=== PATIENT | female | born 1965 | race Two or more races ===

== ENCOUNTER 2018-03-19 16:43 | Emergency (ER) | payer OTHER ==
[2018-03-19 16:54] VITALS: BP 132/73; PULSE 99; TEMP 98.2; BMI 26.6
--- NOTE | 2018-03-19 17:55 | PDOC ---
History of Present Illness - General Chief Complaint: Cold Symptoms Stated Complaint: HEADACHE Time Seen by Provider: 03/19/18 17:32 History Source: Patient Exam Limitations: No Limitations - History of Present Illness Initial Comments: 03/19/18 17:48 HISTORY OF PRESENT ILLNESS: 52-year-old woman past medical history frequent sinusitis of presents emergency department for evaluation of left-sided facial pain which is been worsening over the past 10 days. Patient reports most recently had a sinus infection prior to and was treated with fluoroquinolone antibiotics. She stated the infection improved but did not go away after completion of antibiotics and then spontaneously resolved a week later. Patient reports increased pain which radiates to her teeth on the left side as well as mucopurulent drainage from her left naris. The Patient reports pain is 8/10 and worsens while she sits forward. She denies fevers. No recent travel or sick contacts. PAST MEDICAL HISTORY: frequent sinusitis SURGICAL HISTORY: Denies ALLERGIES: No known drug allergies REVIEW OF SYSTEMS General/Constitutional: Denies fever or chills. Denies weakness, weight change. HEENT: Denies change in vision. Denies ear pain or discharge. Denies sore throat. Left sided facial pain. Cardiovascular: Denies chest pain or shortness of breath. Respiratory: Denies cough, wheezing, or hemoptysis. Gastrointestinal: Denies nausea, vomiting, diarrhea or constipation. Denies rectal bleeding. Genitourinary: Denies dysuria, frequency, or change in urination. Musculoskeletal: Denies joint or muscle swelling or pain. Denies neck or back pain. Skin and breasts: Denies rash or easy bruising. Neurologic: Denies headache, vertigo, loss of consciousness, or loss of sensation. Psychiatric: Denies depression or anxiety. Endocrine: Denies increased thirst. Denies abnormal weight change. Hematologic/Lymphatic: Denies anemia, easy bleeding, or history of blood clots. Allergic/Immunologic: Denies hives or skin allergy. Denies latex allergy. PHYSICAL EXAM General Appearance: Well-appearing, appropriately dressed. No apparent distress , no intoxication. HEENT: EOMI, PERRLA, normal ENT inspection, normal voice, TMs normal, pharynx normal. No conjunctival pallor. No photophobia, scleral icterus. +maxillary and frontal sinus tenderness. No Periorbital erythema, tenderness or induration. Respiratory/Chest: Lungs CTAB. No shortness of breath, chest tenderness, respiratory distress, accessory muscle use. No crackles, rales, rhonchi, stridor , wheezing, dullness Cardiovascular: RRR. S1, S2. No JVD, murmur, bradycardia, tachycardia. 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 Fully oriented, alert. Appropriate mood/affect. Motor strength 5/5. No appreciable EOM palsy, facial droop or sensory deficit. Past History - Past Medical History Allergies/Adverse Reactions: Allergies Allergy/AdvReac Type Severity Reaction Status Date / Time No Known Allergies Allergy Verified 03/19/18 16:49 Home Medications: Ambulatory Orders Doxycycline Hyclate 100 mg PO BID #20 tablet 03/19/18 Tramadol HCl 50 mg PO TID PRN #9 tablet MDD 3 03/19/18 COPD: No - Immunization History Immunization Up to Date: No - Suicide/Smoking/Psychosocial Hx Smoking History: Current every day smoker Number of Cigarettes Smoked Daily: 10 Information on smoking cessation initiated: No Hx Alcohol Use: No Drug/Substance Use Hx: No *Physical Exam - Vital Signs Last Vital Signs Temp Pulse Resp BP Pulse Ox 98.2 F 99 H 18 132/73 100 03/19/18 16:51 03/19/18 16:51 03/19/18 16:51 03/19/18 16:51 03/19/18 16:51 Moderate Sedation - Procedure Monitoring Vital Signs: Procedure Monitoring Vital Signs Temperature 98.2 F 03/19/18 16:51 Pulse Rate 99 H 03/19/18 16:51 Respiratory Rate 18 03/19/18 16:51 Blood Pressure 132/73 03/19/18 16:51 O2 Sat by Pulse Oximetry (%) 100 03/19/18 16:51 Medical Decision Making - Medical Decision Making 03/19/18 17:48 A/P: 52-year-old woman with left-sided facial pain for the past 10 days Maxillary and frontal sinus tenderness to light palpation Transillumination of the sinuses positive Mucopurulent nasal discharge noted No tenderness to palpation of the orbits No erythema or swelling to orbits TMs within normal limits bilaterally Oropharynx clear without erythema or exudates Physical exam is consistent with sinusitis. As symptoms have been present for greater than 1 week, the patient with increased pain I will treat the patient with doxycycline 100 mg twice a day as an outpatient. I will also prescribed tramadol 50 mg every 8 hours for 2 days to help with her pain until the antibiotics begin to work. I discussed the physical exam findings, ancillary test results and final diagnoses with the patient. I answered all of the patient's questions. The patient was satisfied with the care received and felt comfortable with the discharge plan and treatment plan. The patient will call their primary care physician within 24 hours to arrange follow-up and will return to the Emergency Department with any new, persistent or worsening symptoms. *DC/Admit/Observation/Transfer Diagnosis at time of Disposition: Sinusitis Qualifiers: Sinusitis location: unspecified location Chronicity: acute Recurrence: recurrent Qualified Code(s): J01.91 - Acute recurrent sinusitis, unspecified - Discharge Dispostion Disposition: HOME Condition at time of disposition: Stable Decision to Admit order: No - Prescriptions Prescriptions: Doxycycline Hyclate 100 mg PO BID #20 tablet Tramadol HCl 50 mg PO TID PRN #9 tablet MDD 3 PRN Reason: Moderate Pain - Referrals Referrals: ON STAFF,NOT [Primary Care Provider] - - Patient Instructions Printed Discharge Instructions: DI for Sinusitis Additional Instructions: Rest, drink lots of fluids: Teas, water, soups, Pedialyte Saltwater gargles Steamy showers/seem to face break up mucus Avoid contact with others until fevers and cough resolved Lots of handwashing and good hygiene Continue [id number] medications for symptomatic relief Tylenol or Motrin for fever and pain Tramadol 50mg 3 times a day for severe pain Doxycycline 100mg twice a day until all medications are completed. Followup with private physician in one to 2 days as needed Return to emergency department for worsened symptoms, fevers, dehydration - Post Discharge Activity
== END 2018-03-19 18:07 | disposition home or self-care (01) ==
LOC: JERFT 16:43
DX: J01.91 Acute recurrent sinusitis, unspecified (principal)
CPT/HCPCS: 99281-25

== ENCOUNTER 2020-08-08 09:08 | Emergency (ER) | payer OTHER ==
[2020-08-08 09:14] VITALS: BP 134/74; PULSE 79; TEMP 98.3; BMI 26.3
[2020-08-08 10:41] LABS: BASO % 0.8 % (0-2.0); EOS % 1.8 % (0-4.5); HEMATOCRIT 39.7 % (32.4-45.2); HEMOGLOBIN 13.4 GM/dL (10.7-15.3); LYMPH % 26.3 % (8-40); MCHC 33.9 g/dl (32.0-36.0); MEAN CELL VOLUME 88.5 fl (80-96); MEAN PLT VOLUME 9.2 fl (7.5-11.1); MONO % 7.7 % (3.8-10.2); NEUT % 63.4 % (42.8-82.8); PLATELET COUNT 306 K/MM3 (134-434); RBC 4.49 M/mm3 (3.60-5.2); RDW 14.3 % (11.6-15.6); WHITE BLOOD COUNT 11.4 K/mm3 (4.0-10.0)
[2020-08-08 10:51] LABS: HCG,QUALITATIVE URINE Negative
[2020-08-08 10:59] LABS: EPI CELLS >36 /uL (0-25.1); HYALINE CASTS 12 /uL (0-3.1); PH,URINE 5.5 (5.0-8.0); URINE APPEARANCE CLEAR; URINE BACTERIA 799 /uL (0-1359); URINE BILIRUBIN NEGATIVE (NEGATIVE); URINE COLOR YELLOW; URINE GLUCOSE (UA) NEGATIVE (NEGATIVE); URINE KETONE NEGATIVE (NEGATIVE); URINE LEUK ESTERASE NEGATIVE (NEGATIVE); URINE NITRITE NEGATIVE (NEGATIVE); URINE PROTEIN 1+ (NEGATIVE); URINE RBC 4 /uL (0-23.9); URINE UROBILINOGEN 0.2 mg/dL (0.2-1.0); URINE WBC 2 /uL (0-25.8)
[2020-08-08 11:02] LABS: CALCIUM 8.8 mg/dL (8.5-10.1)
[2020-08-08 11:03] LABS: BLOOD UREA NITROGEN 10.3 mg/dL (7-18)
[2020-08-08 11:06] LABS: CREATININE 0.7 mg/dL (0.55-1.3)
== END 2020-08-08 14:52 | disposition home or self-care (01) ==
LOC: JER 09:08
DX: D25.9 Leiomyoma of uterus, unspecified (principal); M79.671 Pain in right foot
CPT/HCPCS: 36415; 73610-TC-RT-FY; 73630-TC-RT-FY; 76830-TC; 80048; 81003; 84703; 85025; 87086; 87491; 87591; 99285-25

== ENCOUNTER 2020-09-29 12:16 | Emergency (ER) | payer OTHER ==
[2020-09-29 12:25] VITALS: BP 133/74; PULSE 80; TEMP 98.7; BMI 30.5
[2020-09-29] MEDS ORDERED: KETOROLAC TROMETHAMINE 60 MG/2 ML VIAL IVPUSH ONE (13:22)
[2020-09-29] MEDS ORDERED: METOCLOPRAMIDE HCL INJECTION 10 MG/2 ML VIAL IVPB ONE (13:22)
[2020-09-29] MEDS ORDERED: SODIUM CHLORIDE 1,000 ML IV STA (13:22)
[2020-09-29] MEDS ORDERED: diphenhydrAMINE HCL 25 MG CAPSULE (FP) PO ONE (13:59)
[2020-09-29] MEDS ORDERED: METOCLOPRAMIDE HCL INJECTION 10 MG/2 ML VIAL ONE (13:59)
[2020-09-29] MEDS ORDERED: KETOROLAC TROMETHAMINE 15 MG/ML VIAL ONE (13:59)
[2020-09-29 14:34] LABS: BASO % 0.4 % (0-2.0); EOS % 1.4 % (0-4.5); HEMATOCRIT 42.9 % (32.4-45.2); HEMOGLOBIN 14.1 GM/dL (10.7-15.3); LYMPH % 31.9 % (8-40); MCH 29.2 pg (25.7-33.7); MCHC 32.9 g/dl (32.0-36.0); MEAN CELL VOLUME 88.9 fl (80-96); MEAN PLT VOLUME 9.5 fl (7.5-11.1); MONO % 7.8 % (3.8-10.2); NEUT % 58.5 % (42.8-82.8); PLATELET COUNT 311 10^3/uL (134-434); RBC 4.82 M/mm3 (3.60-5.2); RDW 14.1 % (11.6-15.6); WHITE BLOOD COUNT 10.3 K/mm3 (4.0-10.0)
[2020-09-29 14:39] LABS: INR 1.04 (0.83-1.09); PROTHROMBIN TIME (PATIENT) 12.8 SEC (9.7-13.0)
[2020-09-29 14:44] LABS: BLOOD UREA NITROGEN 11.3 mg/dL (7-18); CALCIUM 9.2 mg/dL (8.5-10.1)
[2020-09-29 14:45] LABS: ALBUMIN 3.7 g/dl (3.4-5.0)
[2020-09-29 14:47] LABS: CREATININE 0.8 mg/dL (0.55-1.3)
[2020-09-29 14:49] LABS: BILIRUBIN,TOTAL 0.1 mg/dL (0.2-1); TOT PROT 8.3 g/dl (6.4-8.2)
== END 2020-09-29 18:27 | disposition home or self-care (01) ==
LOC: JER 12:16
PROC: 3E033NZ Introduction of Analgesics, Hypnotics, Sedatives into Peripheral Vein, Percutaneous Approach (ICD-10-PCS; principal; 2020-09-29)
PROC: 3E0333Z Introduction of Anti-inflammatory into Peripheral Vein, Percutaneous Approach (ICD-10-PCS; 2020-09-29)
PROC: 3E033GC Introduction of Other Therapeutic Substance into Peripheral Vein, Percutaneous Approach (ICD-10-PCS; 2020-09-29)
PROC: 3E0337Z Introduction of Electrolytic and Water Balance Substance into Peripheral Vein, Percutaneous Approach (ICD-10-PCS; 2020-09-29)
DX: J01.01 Acute recurrent maxillary sinusitis (principal)
CPT/HCPCS: 36415; 70486-TC; 80053; 85025; 85610; 86769; 96361; 96374; 96375; 99285-25

== ENCOUNTER 2022-10-08 12:05 | Emergency (ER) | payer OTHER ==
[2022-10-08 12:18] VITALS: BP 146/76; PULSE 82; RESP 17; TEMP 98.5; BMI 28.2
[2022-10-08] MEDS ORDERED: SODIUM CHLORIDE 0.9% 500 ML INFUS.BAG IV ONE (12:46)
[2022-10-08] MEDS ORDERED: ACETAMINOPHEN 1000 MG/100 ML BAG IVPB ONE (12:46)
[2022-10-08 13:33] LABS: BASO % 0.5 % (0-2.0); EOS % 1.2 % (0-4.5); HEMATOCRIT 39.4 % (32.4-45.2); HEMOGLOBIN 12.7 GM/dL (10.7-15.3); LYMPH % 13.3 % (8-40); MCH 28.5 pg (25.7-33.7); MCHC 32.3 g/dl (32.0-36.0); MEAN CELL VOLUME 88.2 fl (80-96); MEAN PLT VOLUME 9.7 fl (7.5-11.1); PLATELET COUNT 323 10^3/uL (134-434); RBC 4.47 M/mm3 (3.60-5.2); RDW 13.8 % (11.6-15.6)
[2022-10-08 13:34] LABS: EPI CELLS 10 /uL (0-25.1); HYALINE CASTS 0 /uL (0-3.1); PH,URINE 5.5 (5.0-8.0); URINE APPEARANCE TURBID; URINE BACTERIA 2668 /uL (0-1359); URINE BILIRUBIN NEGATIVE (NEGATIVE); URINE COLOR YELLOW; URINE GLUCOSE (UA) NEGATIVE (NEGATIVE); URINE KETONE NEGATIVE (NEGATIVE); URINE LEUK ESTERASE 2+ (NEGATIVE); URINE NITRITE POSITIVE (NEGATIVE); URINE PROTEIN 3+ (NEGATIVE); URINE RBC 14095 /uL (0-23.9); URINE UROBILINOGEN 0.2 mg/dL (0.2-1.0); URINE WBC 3444 /uL (0-25.8)
[2022-10-08] MEDS ORDERED: ACETAMINOPHEN INJECTION 100 ML IVPB ONE (13:36)
[2022-10-08 13:53] LABS: POTASSIUM 4.3 mmol/L (3.5-5.1)
[2022-10-08 13:56] LABS: CALCIUM 9.5 mg/dL (8.5-10.1)
[2022-10-08 13:57] LABS: ALBUMIN 3.4 g/dl (3.4-5.0); BLOOD UREA NITROGEN 8.6 mg/dL (7-18)
[2022-10-08 14:00] LABS: CREATININE 0.8 mg/dL (0.55-1.3)
[2022-10-08 14:01] LABS: BILIRUBIN,TOTAL 0.3 mg/dL (0.2-1); TOT PROT 7.7 g/dl (6.4-8.2)
[2022-10-08] MEDS ORDERED: CEFTRIAXONE 1 GM in DEXTROSE 5%-WATER - 100 ML IVPB ONE (15:54)
[2022-10-08] MEDS ORDERED: CEFTRIAXONE 1 GM/50 ML BAG ONE (16:01)
== END 2022-10-08 16:40 | disposition home or self-care (01) ==
LOC: JER 12:05
PROC: 3E033NZ Introduction of Analgesics, Hypnotics, Sedatives into Peripheral Vein, Percutaneous Approach (ICD-10-PCS; principal; 2022-10-08)
PROC: 3E033GC Introduction of Other Therapeutic Substance into Peripheral Vein, Percutaneous Approach (ICD-10-PCS; 2022-10-08)
DX: K52.9 Noninfective gastroenteritis and colitis, unspecified (principal); N39.0 Urinary tract infection, site not specified; R31.9 Hematuria, unspecified
CPT/HCPCS: 36415; 74177-TC; 80053; 81003; 83690; 83735; 85025; 87086; 87186; 99285-25; Q9967

== ENCOUNTER 2023-04-24 14:03 | Emergency (ER) | payer OTHER ==
[2023-04-24 14:10] VITALS: BP 148/76; PULSE 87; RESP 16; TEMP 98.2; BMI 27.4
== END 2023-04-24 15:52 | disposition home or self-care (01) ==
LOC: JERFT 14:03
DX: J32.0 Chronic maxillary sinusitis (principal); Z20.822 Contact with and (suspected) exposure to COVID-19
CPT/HCPCS: 0241U-QW; 99283-25